=== PATIENT | male | born 1935 | race Caucasian/White ===

== ENCOUNTER 2025-08-05 16:58 | Inpatient (IN) ==
[2025-08-05 17:44] LABS: Basophils # (Auto) 0.02 K/mcL (0.00-0.30); Basophils % (Auto) 0.3 % (0.0-2.0); Eosinophils # (Auto) 0.15 K/mcL (0.00-0.70); Eosinophils % (Auto) 2.2 % (0.0-7.0); Hematocrit 41.4 % (40.1-51.0); Hemoglobin 13.5 g/dL (13.7-17.5); Lymphocytes # (Auto) 1.16 K/mcL (1.50-4.80); Lymphocytes % (Auto) 17.4 % (15.5-49.0); Mean Corpuscular HGB Conc 32.6 g/dL (31.0-36.0); Monocytes # (Auto) 0.54 K/mcL (0.10-0.90); Monocytes % (Auto) 8.1 % (1.0-12.0); Neutrophils % (Auto) 71.6 % (38.0-78.0); Platelet Count 198 K/mcL (140-440); RBC 4.30 M/mcL (4.63-6.08); WBC 6.7 K/mcL (4.5-11.0)
[2025-08-05 18:12] LABS: ALT/SGPT < 5 U/L (<40); AST/SGOT 25 U/L (<40); Albumin 4.0 gm/dL (3.2-5.2); Albumin/Globulin Ratio 1.5 (1.0-2.3); Alkaline Phosphatase 80 U/L (39-117); Anion Gap 9.0 (8.0-16.0); Bilirubin,Total 0.6 mg/dL (0.1-1.0); Blood Urea Nitrogen 24 mg/dL (8-23); Calcium 9.5 mg/dL (8.6-10.4); Carbon Dioxide 27 mmol/L (22-30); Chloride 101 mmol/L (96-108); Globulin 2.7 gm/dL (2.2-3.7); Glucose 123 mg/dL (70-105); Potassium 4.2 mmol/L (3.3-5.1); Sodium 137 mmol/L (133-145); Thyroid Stimulating Hormone 3.09 uIU/mL (0.27-5.01)
[2025-08-05] MEDS: AZITHROMYCIN 250 MG TABLET PO ONE (19:15)
[2025-08-05] MEDS: cefTRIAXone 2 GM in DEXTROSE 5% IN WATER 50 ML IV ONE (19:16)
[2025-08-05] MEDS: FUROSEMIDE 20 MG TABLET PO ONE (19:27)
[2025-08-05 20:54] LABS: Bilirubin,Urine NEGATIVE (Negative); Color,Urine LT. YELLOW; Glucose,Urine (UA) NEGATIVE (Negative); Ketones,Urine NEGATIVE (Negative); Leukocyte Esterase,Urine NEGATIVE /uL (Negative); PH,Urine 6.0 (5.0-9.0); Protein,Urine NEGATIVE (Negative); Specific Gravity,Urine 1.015 (1.000-1.035); Urobilinogen,Urine 0.2 mg/dL
[2025-08-06] MEDS ORDERED: ONDANSETRON 4 MG/2 ML VIAL IV PRN (01:05)
[2025-08-06] MEDS: 0.9 % SODIUM CHLORIDE 10 ML SYRINGE IV SCH (05:02)
[2025-08-06 06:01] LABS: Basophils # (Auto) 0.05 K/mcL (0.00-0.30); Basophils % (Auto) 0.6 % (0.0-2.0); Eosinophils # (Auto) 0.20 K/mcL (0.00-0.70); Eosinophils % (Auto) 2.4 % (0.0-7.0); Hematocrit 41.3 % (40.1-51.0); Hemoglobin 13.3 g/dL (13.7-17.5); Lymphocytes # (Auto) 1.16 K/mcL (1.50-4.80); Lymphocytes % (Auto) 14.0 % (15.5-49.0); Mean Corpuscular HGB Conc 32.2 g/dL (31.0-36.0); Monocytes # (Auto) 0.72 K/mcL (0.10-0.90); Monocytes % (Auto) 8.7 % (1.0-12.0); Neutrophils % (Auto) 74.2 % (38.0-78.0); Platelet Count 201 K/mcL (140-440); RBC 4.33 M/mcL (4.63-6.08); WBC 8.3 K/mcL (4.5-11.0)
[2025-08-06 06:24] LABS: ALT/SGPT 10 U/L (<40); AST/SGOT 23 U/L (<40); Albumin 3.7 gm/dL (3.2-5.2); Albumin/Globulin Ratio 1.4 (1.0-2.3); Alkaline Phosphatase 86 U/L (39-117); Anion Gap 8.0 (8.0-16.0); Bilirubin,Direct < 0.2 mg/dL (0-0.3); Bilirubin,Total 0.3 mg/dL (0.1-1.0); Blood Urea Nitrogen 28 mg/dL (8-23); Calcium 9.7 mg/dL (8.6-10.4); Carbon Dioxide 27 mmol/L (22-30); Chloride 103 mmol/L (96-108); Globulin 2.7 gm/dL (2.2-3.7); Glucose 86 mg/dL (70-105); Phosphorous 3.6 mg/dL (2.5-4.5); Potassium 4.8 mmol/L (3.3-5.1); Sodium 138 mmol/L (133-145); Triglycerides 82 mg/dL (<150); Uric Acid 6.1 mg/dL (2.5-8.0)
[2025-08-06] MEDS: ENOXAPARIN 40 MG/0.4 ML SYRINGE SQ SCH (08:06)
[2025-08-06] MEDS: cefTRIAXone 1 GM VIAL IV SCH (09:50)
[2025-08-06] MEDS: AZITHROMYCIN 500 MG in DEXTROSE 5% IN WATER 250 ML IV SCH (10:16)
[2025-08-06] MEDS: CARBIDOPA/LEVODOPA 25/100 TABLET PO SCH (14:36)
[2025-08-06] MEDS: DONEPEZIL 10 MG TABLET PO SCH (20:29)
[2025-08-06] MEDS: ACETAMINOPHEN 325 MG TABLET PO PRN (20:29)
[2025-08-06] MEDS: SENNOSIDES 1 TABLET PO SCH (20:31)
[2025-08-07] MEDS: OMEPRAZOLE 20 MG CAPSULE PO SCH (08:00)
[2025-08-08] MEDS: MULTIVIT,THER IRON,CA,FA & MIN 1 TABLET PO SCH (08:48)
[2025-08-09 11:49] VITALS: TEMP 97.8; O2SAT 97
[2025-08-09] MEDS: FLU VACC TS2025-26(65YR UP)/PF 180 MCG/0.5 ML SYRINGE IM ONE (12:06)
== END 2025-08-09 13:45 | DRG 948 ==
LOC: ED 16:58 → MEDSUR 08-06 00:50
PROVIDERS: ADMIT Internal Medicine; ATTEND Internal Medicine